=== PATIENT | female | born 2000 | race Caucasian/White ===

== ENCOUNTER 2021-12-15 15:09 | Outpatient (CLI) | payer OTHER ==
[~2021-12-15] VITALS: Ht 162.6 cm; Wt 71.7 kg
[~2021-12-15 15:09] MED LIST: MACROBID 100 M100 MG PO; PYRIDIUM200 MG PO
== END 2021-12-15 18:17 | disposition home or self-care (01) ==
LOC: GENOP 15:09
DX: O47.03 False labor before 37 completed weeks of gestation, third trimester (principal); Z3A.34 34 weeks gestation of pregnancy
CPT/HCPCS: J0702